=== PATIENT | female | born 1985 | race Caucasian/White ===

== ENCOUNTER 2022-07-25 09:42 | Emergency (ER) | payer OTHER, SELFPAY ==
[2022-07-25 09:46] VITALS: BP 115/75; PULSE 89; RESP 18; TEMP 36.2; O2SAT 95; BMI 36.5
[2022-07-25 09:58] VITALS: BP 162/99; PULSE 96; RESP 16; O2SAT 97
--- NOTE | 2022-07-25 10:20 | ED.GENADULT ---
HPI - General Adult General Time Seen by Provider: 10:20 Date Seen: 07/25/22 Chief complaint: Ear/Nose/Throat Problem Stated complaint: L ear infection Time Seen by Provider: 07/25/22 10:20 Source: patient and RN notes reviewed Mode of arrival: ambulatory Limitations: no limitations History of Present Illness HPI narrative: Patient is a very pleasant 36-year-old female with history of tobacco use who comes to the emergency room for evaluation regarding left ear pain. Patient is noted to have had the onset of some left ear pressure with crackling in her ear last night. This has happened to her in the past and she has been told to use Sudafed antihistamines and nasal sprays in this often works. She also tried some compresses last night alternating between hot and cold. Unfortunately she had increasing pain in crackling in her left ear overnight. She states the pain is radiating above and below her ear. She denies any drainage at this time. She noticed some maybe mild facial congestion on the left but otherwise has not had fever sore throat and she is normally healthy. She notes that she has tried ibuprofen and Tylenol and she is continuing with the same pain. No vomiting. Review of Systems Status of ROS: Reports: 10 or more systems reviewed and unremarkable except as noted in History and below Const: Denies: fever or chills Eyes: Denies: change in vision ENMT: Denies: throat pain, neck pain or throat swelling Cardio: Denies: chest pain or shortness of breath with exertion Resp: Denies: shortness of breath or cough GI: Denies: abdominal pain Musculo: Denies: neck pain Neuro: Reports: headache Allergy/Immuno: Denies: throat swelling PFSH PFS Social History Smoking Status: Current every day smoker Do you use any of these nicotine containing products: None Second hand tobacco smoke exposure: Yes How often do you have a drink containing alcohol: monthly or less AUDIT-C Alcohol total score: 1 Non-prescribed substance use: denies use Exam Narrative: Exam Narrative: Patient is alert and oriented very pleasant. Nontoxic in appearance. EOM is full. Right TM within normal limits. Left TM is with erythema bulging of the TM and loss of light reflex. There is no pain with external manipulation of the ear in the ear canal itself looks to be within normal limits. Oral cavity moist mucous membranes. Neck is supple without lymphadenopathy. Heart with regular rate and rhythm lungs are clear. Const: Vital Signs, click to edit/add: Vital Signs - 24 hr 07/25/22 09:46 07/25/22 09:58 07/25/22 10:30 Temperature 97.2 F L Pulse Rate [Pulse Oximeter] 89 96 98 Respiratory Rate 18 16 16 Blood Pressure [Ri t Upper Arm] 115/75 162/99 H 151/65 H Pulse Oximetry 95 97 97 Oxygen Delivery Me thod Room Air Room Air Room Air Documenting provider has reviewed patient's vital signs: yes Course Vital Signs Vital signs: Initial Vital Signs Temperature 97.2 F L 07/25/22 09:46 Temperature Source Temporal Artery Scan 07/25/22 09:46 Pulse Rate 89 07/25/22 09:46 Respiratory Rate 18 07/25/22 09:46 Blood Pressure 115/75 07/25/22 09:46 Blood Pressure Mean 88 07/25/22 09:46 Pulse Oximetry 95 07/25/22 09:46 Oxygen Delivery Method 07/25/22 09:46 Vital Signs Temperature 97.2 F L 07/25/22 09:46 Pulse Rate 89 07/25/22 09:46 Respiratory Rate 18 07/25/22 09:46 Blood Pressure 115/75 07/25/22 09:46 Pulse Oximetry 95 07/25/22 09:46 Oxygen Delivery Method 07/25/22 09:46 Temperature 97.2 F L 07/25/22 09:46 Pulse Rate 98 07/25/22 10:30 Respiratory Rate 16 07/25/22 10:30 Blood Pressure 151/65 H 07/25/22 10:30 Pulse Oximetry 97 07/25/22 10:30 Oxygen Delivery Method 07/25/22 10:30 Medical Decision Making MDM Narrative Medical decision making narrative: 1. Left otitis media-patient will placed on Augmentin 875 p.o. b.i.d. times 14 days. Recommend ibuprofen and Tylenol as needed. Patient does ask if she is able to use tramadol which she has at home from previous prescription and this will be fine to add this is needed. 2. Disposition-return as needed. Patient has tested negative for RSV influenza and COVID today. Medical Records Medical records reviewed: Yes I reviewed the patient's medical records Lab Data Labs: Lab Results 07/25/22 Range/Units 10:10 SARS-CoV-2 (PCR) Negative SARS-CoV-2 (Negative) Influenza Type A (PCR) Negative PCR FLU A (Negative) Influenza Type B (PCR) Negative PCR FLU B (Negative) RSV (PCR) Negative PCR RSV (Negative) Discharge Plan Discharge Clinical Impression: Otitis media Patient Disposition: Home, Self-Care Condition: Unchanged Additional Instructions: Start Augmentin today. Will be in instant meds for you Alternate ibuprofen and Tylenol as needed every 4 hours. Note for no work today Seek medical attention for worsening symptoms Follow Up/Referrals: Jigar Hector MD [Primary Care Provider] - Stand Alone Forms: Essential Medical Info Instructions
[2022-07-25 10:30] VITALS: BP 151/65; PULSE 98; RESP 16; O2SAT 97
[2022-07-25 10:53] LABS: PCR FLU A Negative PCR FLU A (Negative); PCR FLU B Negative PCR FLU B (Negative); PCR RSV Negative PCR RSV (Negative)
--- NOTE | 2022-07-25 10:53 | ED.NURSE ---
Patient left ambualtory. instymeds script provided. work note provided. will call if test results are positive. all questions answered. left ambulatory
[2022-07-25 11:02] LABS: SARS PCR* Negative SARS-CoV-2 (Negative)
== END 2022-07-25 10:55 | disposition home or self-care (01) ==
PROVIDERS: Emergency Provider Family Medicine; PCP Family Medicine
DX: H66.92 Otitis media, unspecified, left ear (principal)
CPT/HCPCS: 87502; 87631; 87634; 87635; 99283

== ENCOUNTER 2024-07-27 06:08 | Emergency (ER) | payer OTHER, SELFPAY ==
--- OUTSIDE RECORDS SUMMARY | 2024-07-27 06:11 | XMS_ITS | Clinical Summary ---
Author Organization [facility] Address [address] [place] [address] Care Team Providers Care Purchasing Analyst Name Role Phone Darius Melgar MD Primary Care Provider [phone] Source Comments You are receiving this document as you are listed as the primary care provider,follow-up provider, or the patient has been referred to you for consultation.This is in compliance with the Medicare andMedicaid EHR Incentive Program,which states Providers who transition their patient to another setting of careor provider of care or refers their patient to another provider of care shouldprovide summary care record for each transition of care or referral. [facility] Allergies Active Allergy Reactions Criticality Noted Date Comments Codeine Other, see comments 02/04/2012 Hallucinations; paranoia Hydrocodone-Acetamino phen Other, see comments 02/04/2012 blacked out for 8 hours Medications * This document contains information received from the source organization and may not represent a complete record from that organization. nystatin-triamc inolone (AKA MYCOLOG-II) 465876-1.1 UNIT/GM-% ointmentIndicat ions:Tinea Apply topically 2 times daily. until rash resolved. No more than 4 weeks 30 g 0 3 Active FIBER DIET OR Take by mouth. 5 Active cefuroxime (CEFTIN) 500 MG tabletIndicatio ns:Acute cystitis with hematuria Take 1 tablet by mouth 2 times daily. till all taken 10 tablet 0 5 Active Additional Information Patient not taking.Reported on 12/05/2021 Probiotic Product (ACIDOPHILUS PROBIOTIC) capsule Twice daily for 15 days 30 Capsule 2 Active Active Problems Problem Noted Date Diagnosed Date Atypical squamous cells of u ndetermined significance on cytologic smear of cervix (ASC-US) 05/13/2017 Overview (09/10/2019): [facility] Review: History: 04/2017: LSIL HPV+other 05/2017: Kite neg 04/2018: ASCUS HPV+other 04/2018: Kite neg 05/2019: ASCUS HPV+ other 05/2019: COLP & ECC neg Plan per Dr. Darius Cheatham: Pap and HPV testing in 2 years (05/2021) Immunizations Immunization Administration Dates Next Due 4vHPV (Gardasil) 08/07/2010,07/10/2010 TDAP (BOOSTRIX) 12/04/2013 Td 01/13/1996 Tdap 12/05/2021 Family History Medical History Relation Name Comments Cancer Father Pancreatic, Hod gkins Cancer, Lung Mother Hypertension Maternal Grandmother Relation Name Status Comments Father Mother Alive Maternal Grandmother Social History Tobacco Use Types Packs/Day Years Used Date Smoking Tobacco: Every Day Cigarettes Smokeless Tobacco: Never Comments:Smoking History Pac ks/day: Alcohol Use Standard Drinks/Week Comments Yes 1 (1 standard drink = 0.6 oz pur e alcohol) beer once a week Comments No Sex and Gender Information Value Date Recorded Sex Assigned at Not on file Legal Sex Female 2:53 PM CDT Gender Identity Not on file Sexual Orientation Not on file 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 Not on file Not on file Not on file Last Filed Vital Signs Vital Sign Reading Time Taken Comments Blood Pressure 150/95 12/05/2021 1:28 PM CDT Pulse 76 12/05/2021 1:28 PM CDT Temperature 36.7 C (98.1 F) 12/05/2021 1:28 PM CDT Respiratory Rate 18 12/05/2021 1:28 PM CDT Oxygen Saturation 100% 12/05/2021 1:28 PM CDT Inhaled Oxygen Concentration - - Weight 110.2 kg (243 lb) 05/27/2019 12:53 PM CHARTER COACH DRIVER Height 170.2 cm (5' 7) 05/03/2019 2:24 PM CHARTER COACH DRIVER Body Mass Index 38.06 05/03/2019 2:24 PM CHARTER COACH DRIVER Plan of Treatment Health Maintenance Due Date Last Done Comments Hep C Screening (Preventive Services) 1985 Mammogram 1985 HIV Screening (Preventive Services) 1999 Adult Preventive Visit 12/09/2001 HepB (1) 12/09/2002 Pneumococcal (1 of 2 - PCV) 12/09/2002 HPV Vaccine (3 - 3-dose series) 01/07/2011 08/07/2010, 07/10/2010 Cervical Cancer Screening 05/27/20212018, 05/27/2019 (Completed), 05/03/2019, Additional history exists COVID-19 Vaccine ( - season) 2024 Influenza (#1) 2024 DTaP/Tdap/Td (5 - Tdap) 12/06/2031 12/06/19, 12/04/2013, 11/02/2013, Additional history exists Zoster/Shingles (1 of 2) 12/09/2033 HepA Aged Out No longer eligi ble based on patient's age to complete this topic Hib Aged Out No longer eligi ble based on patient's age to complete this topic IPV (Polio) Aged Out No longer eligi ble based on patient's age to complete this topic MCV4 Aged Out No longer eligi ble based on patient's age to complete this topic Meningococcal B Aged Out No longer el igible based on patient's age to complete this topic Procedures Procedure Name Priority Date/Time Associated Diagnosis Comments PAP TEST Routine 05/03/2019 2:43 PM CHARTER COACH DRIVER Screening for malignant neoplasm of cervix from Last 3 Months or Most Recently Relevant to Health Maintenance Results * (ABNORMAL) PAP Test (05/03/2019 2:43 PM CHARTER COACH DRIVER) Case Report Pap Case: [id number] Authorizing Provider: Darius Cheatham MD Collected: 05/03/2019 02:43 PM Ordering Location: [place] [address] Received: 05/03/2019 04:35 PM Obstetrics/Material Specialist ecology First Screen: Nila Adan, CT (ASCP) Pathologist: Gerson Arguello MD Specimen: Pap Test, Diagnostic, Cervix/Endocerv ix 05/10/2019 1:38 PM CHARTER COACH DRIVER [facility] Pap Specimen Adequacy Satisfactory for evaluation, endocervical/tr ansformation zone component present. 05/10/2019 1:38 PM CHARTER COACH DRIVER [facility] Pap Interpretation Atypical squamous cells of undetermined significance (ASC-US).(A) 05/10/2019 1:38 PM CHARTER COACH DRIVER [facility] at 1338 CHARTER COACH DRIVER Gross Description The specimen is received in SurePath fixative and properly labeled. 1 Pap-stained SurePath slide is prepared. 05/10/2019 1:38 PM CHARTER COACH DRIVER [facility] Pap Disclaimer The Pap test is a screening test designed to aid in the detection of cervical cancer and its precursor lesions. It is not a diagnostic procedure and should not be used as the sole means of detecting cervical cancer. Both false-positive and false-negative reports may occur. 05/10/2019 1:38 PM CHARTER COACH DRIVER [facility] Embedded Images 9 1:38 PM CHARTER COACH DRIVER [facility] Other Specimen Type ENTIRE ENDOCERVIX / Unknown 05/03/2019 2:43 PM CHARTER COACH DRIVER 05/03/2019 4:35 PM CHARTER COACH DRIVER Comment:LMP: Patient's last menstrual period was 04/19/2019 (exact date). Darius Cheatham MD LAB PATHOLOGY Final Result [facility] [address] [place] [address], [facility] from Last 3 Months or Most Recently Relevant to Health Maintenance Insurance [facility] Care Teams Purchasing Analyst Relationship Specialty [place] [address] [place] [address] PCP - General Family Practice 04/23/16
--- OUTSIDE RECORDS SUMMARY | 2024-07-27 06:11 | XMS_ITS | Clinical Summary ---
Author Organization [facility] Address [address] [place] [id number] Care Team Providers Care Seating Captain Name Role Phone No Ref-Primary, Physician Primary Care Provider Allergies Active Allergy Reactions Criticality Noted Date Comments Codeine Sulfate Other (See Comments) 02/04/2012 Hallucinations; paranoia Hydrocodone-Acetamin ophen Other (See Comments) 02/04/2012 blacked out for 8 hours Medications IBUPROFEN PO Take 200 mg by mouth every 6 hours as needed. Active oxyCODONE-acetamino phen (PERCOCET) 5-325 MG per tabletIndications:H x of anterior cruciate ligament tear reconstruction Take 1-2 tablets by mouth every 4 hours as needed for pain. 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 MECHANIC HELPER Gender Identity Not on file Sexual Orientation Not on file Last Filed Vital Signs Vital Sign Reading Time Taken Comments Blood Pressure 163/115 07/27/2021 8:59 AM FORMING MACHINE UPKEEP MECHANIC HELPER Pulse 95 07/27/2021 8:59 AM FORMING MACHINE UPKEEP MECHANIC HELPER Temperature 36.8 C (98.3 F) 07/27/2021 8:59 AM FORMING MACHINE UPKEEP MECHANIC HELPER Respiratory Rate 18 07/27/2021 8:59 AM FORMING MACHINE UPKEEP MECHANIC HELPER Oxygen Saturation 99% 07/27/2021 8:59 AM FORMING MACHINE UPKEEP MECHANIC HELPER Inhaled Oxygen Concentration - - Weight 104.3 kg (230 lb) 07/27/2021 8:59 AM FORMING MACHINE UPKEEP MECHANIC HELPER Height 172.7 cm (5' 8) 07/27/2021 8:59 AM FORMING MACHINE UPKEEP MECHANIC HELPER Body Mass Index 34.97 07/27/2021 8:59 AM FORMING MACHINE UPKEEP MECHANIC HELPER Plan of Treatment Health Maintenance Due Date Last Done Comments ADVANCE CARE PLANNING 1983 ANNUAL REVIEW OF HM ORDERS 1983 GLUCOSE 1983 MAMMO SCREENING 1983 YEARLY PREVENTIVE VISIT 12/09/1986 HIV SCREENING 12/09/1998 HEPATITIS C SCREENING 12/09/2001 HEPATITIS B IMMUNIZATION (1 of 3 - 19+ 3-dose series) 12/09/2002 Pneumococcal Vaccine: Pediatrics (0 to 5 Years) and At-Risk Patients (6 to 49 Years) (1 of 2 - PCV) 12/09/2002 PAP 12/09/2004 HPV IMMUNIZATION (3 - 3-dose series) 01/07/2011 08/07/2010, 07/10/2010 DTAP/TDAP/TD IMMUNIZATION (3 - Td or Tdap) 12/05/2023 12/04/2013, 01/13/1996 LIPID 2023 COVID-19 Vaccine (1 - 2023-2 5 season) 2024 INFLUENZA VACCINE (#1) 2024 PHQ-2 (once per calendar year) 2024 ZOSTER IMMUNIZATION (1 of 2) 12/09/2033 MENINGITIS IMMUNIZATION Aged Out No l onger eligible based on patient's age to complete this topic Medical Devices Implanted Type Area Fusing Machine Feeder Device Identifier Shelf Expiration Date Model / Serial / Lot Imp Scr Bio Arthrex Can [id number] Sheath [id number] Implanted:Qty: 1 on 02/10/2012 by Gildardo Abdi MD at [facility] Left: Knee ARTHREX AR-[id number] / / [id number] Imp Scr Bio Arthrex Can [id number] Sheath [id number] Implanted:Qty: 1 on 02/10/2012 by Gildardo Abdi MD at [facility] Left: Knee ARTHREX 03/01/2013 [id number] / / [id number] Graft Tendon Quad Implanted:Qty: 1 on 02/10/2012 by Gildardo Abdi MD at [facility] Left: Knee MUSCULOSKELETAL JOHNSON 03/31/2016 [id number] / / [id number] [place] [id number] [place] [address] [employer] Advance Directives For more information, please contact: [phone] * Full Code (Latest Code Status on File) Date Activated Date Inactivated Comments 02/10/2012 8:44 AM 07/27/2021 8:56 AM Care Teams Seating Captain Relationship Specialty Start Date End Date No Ref-Primary, Physician PCP - General 07/27/21
--- OUTSIDE RECORDS SUMMARY | 2024-07-27 06:11 | XMS_ITS | Clinical Summary ---
Author Organization [email or web address] [facility] Address [address] [place] [address] Care Team Providers Care Director Of Intelligence Name Role Phone Kenisha Mullen Primary Care Provider [phone] Allergies Active Allergy Reactions Criticality Noted Date Comments Codeine Other - Describe In Comment Field 02/04/2012 Hallucinations; paranoia Hydrocodone-Acetaminoph en Other - Describe In Comment Field 02/04/2012 blacked out for 8 hours Sumatriptan Shortness Of Breath,Chest Pain 05/21/2023 [place] Mushroom Hives 04/14/2023 Medications lisinopril-hydroch lorothiazide (10-12.5 mg) tablet (PRINZIDE; ZESTORETIC)Indicat ions:HTN (hypertension) Take 1 Tablet by mouth once daily. 90 Tablet 3 05/10/20 24 Active atorvastatin (LIPITOR) 10 mg tabletIndications: Mixed hyperlipidemia Take 1 Tablet (10 mg) by mouth at bedtime. 90 Tablet 3 05/11/20 24 Active nystatin powder (MYCOSTATIN) powderIndications: Candidal intertrigo Apply 1 Strip topically to affected area(s) three times daily. Apply to skin folds in groin. 60 g 2 06/07/19 25 Active ubrogepant (Ubrelvy) 50 mg tab tabletIndications: Migraine without aura and without status migrainosus, not intractable Take 1 Tablet (50 mg) by mouth 2 times daily if needed for Migraine. Give at minimum 2hrs apart. Max Dose: 200mg per 24hrs. 10 Tablet 8 07/22/19 25 Active ubrogepant (Ubrelvy) 50 mg tab tabletIndications: Migraine without aura and without status migrainosus, not intractable Take 1 Tablet (50 mg) by mouth 2 times daily if needed for Migraine. Give at minimum 2hrs apart. Max Dose: 200mg per 24hrs. 10 Tablet 11 05/10/20 24 025 Discontin ued(*Avai lability/ Formulary change/Co st of medicatio n) Active Problems Problem Noted Date Diagnosed Date Nexplanon in place 12/31/2023 Overview (12/31/2023): Placed in left arm on 12/30/23. Due for removal in 3 years- 12/29/26 Kenisha Mullen PA-C, Family Medicine.....................12/31/2023 7:34 AM ASCUS with positive high risk HPV cervical 05/29 Overview (05/20/2024): 04/2017 LSIL/HPV+, HPV 16/18 negative 05/2017 [place]: Biopsy Benign, ECC Negative 04/2018 ASCUS/HPV+, HPV 16/18 negative 04/2018 [place]: Biopsy and ECC Negative 05/2019 ASCUS/HPV+, HPV 16/18 negative 05/2019 [place]: ECC Insufficient 05/2023 ASCUS/HPV+, HPV 16/18 negative 05/2024 NIL/HPV+, HPV 16/18 negative. Plan: Colposcopy. Obesity (BMI 30-39.9) 04/18/2023 Elevated blood pressure read ing without diagnosis of hypertension 04/16/2023 Migraine without aura and wi thout status migrainosus, not intractable 04/16/2023 Vitamin D deficiency 04/16/2023 Prediabetes 04/16/2023 Mixed hyperlipidemia 04/16/2023 Encounters Date Type Department Care Team Description 07/20/2024 Refill [facility] [address] [place] [address] Kenisha Mullen PA Refill Request (Ubrelvy) 07/13/2024 Transcribe Orders [facility] - [address] [place] [address] Collins Silva MD 07/07/2024 9:30 AM GRAIN SCOOPER Office Visit [facility] [address] [place] [address] Collins Silva MD Wrist 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 - right carpal tunnel syndrome) 07/07/2024 Travel 06/24/2024 Telephone [facility] [address] [place] [address] Kenisha Mullen PA Results (EMG) 06/21/2024 11:02 AM GRAIN SCOOPER - 06/21/2024 11:59 PM GRAIN SCOOPER Hospital Encounter [facility]W EMG/EEG/EP [address] [facility] [address] [place] [address] Kenisha Mullen PA Beck, Elizabeth Haule, MD Prelesnik, Jane D Paresthesia of right upper extremity 06/21/2024 Travel 06/07/2024 2:30 PM GRAIN SCOOPER Ancillary Procedure [address] [address] 06/07/2024 2:00 PM GRAIN SCOOPER Ancillary Procedure [address] [address] 06/07/2024 9:10 AM GRAIN SCOOPER Procedure Only [address] [address] Tanya Littlejohn, Procedure (Has had colposcopy in the past) 06/07/2024 Travel 05/31/2024 Telephone [facility] [address] [place] [address] Tech, Mammo Results 05/27/2024 8:40 AM GRAIN SCOOPER Ancillary Procedure [facility] [address] [place] [address] 05/27/2024 Travel 05/20/2024 Telephone [facility] [address] [place] [address] Kenisha Mullen PA Pap Plan 05/17/2024 1:12 PM GRAIN SCOOPER - 05/17/2024 11:59 PM GRAIN SCOOPER Hospital Encounter [facility] [address] [place] [address] Kenisha Mullen PA Pogwizd, Rebekah, OT Paresthesia of right upper extremity 05/17/2024 Travel 05/10/2024 10:10 AM GRAIN SCOOPER Office Visit [facility] [address] [place] [address] Kenisha Mullen PA Physical (Annual exam with pap-also discuss possible carpal tunnel) 05/10/2024 Travel 05/05/2024 Travel from Last 3 Months Immunizations Name Administration Dates Next Due Human Papilloma Virus Vaccine 08/07/2010, 011 Td (Age >=7 Years) 01/13/1996 Tdap 12/05/2021,12/04/2013,11/02/2013 Family History Medical History Relation Name Comments Cancer-pancreatic Father Hodgkin's lymphoma Father Cancer-breast Maternal Aunt Lung cancer Mother Relation Name Status Comments Father Maternal Aunt Mother Social History Tobacco Use Types Packs/Day Years Used Date Smoking Tobacco: Every Day Cigarettes 0.5 12.2 Started: 06/02/2012; Last attempted to quit: 03/04/2008 Smokeless Tobacco: Never Tobacco Cessation:Ready to Q uit: Not Asked; Counseling Given: Not Answered Alcohol Use Standard Drinks/Week Comments Yes 0 (1 standard drink = 0.6 oz pur e alcohol) PHQ-2 Answer Date Recorded PHQ-2 TOTAL SCORE 0 05/10/2024 Social Connections Answer Date Recorded Do you often feel lonely or isolated from those around you? 0 05/10/2024 Financial Resource Strain Answer Date R ecorded Difficulty of Paying Living Expenses 3 05/10/2024 Difficulty of Paying Living Expenses Not on file 05/10/2024 Food Insecurity Answer Date Recorded Do you worry your food will run out before you are able to buy more? 1 05/10/2024 Transportation Needs Answer Date Record ed Does lack of transportation keep you from medica l appointments? 1 05/10/2024 Does lack of transportation keep you from work, meetings or getting things that you need? 1 05/10/2024 Housing Stability Answer Date Recorded What is your housing situation today? 1 05/10/2024 Utilities Answer Date Recorded Do you have trouble paying f or utilities (for example, heat, electricity, water, phone)? 1 05/10/2024 Comments No Sex and Gender Information Value Date Recorded Sex Assigned at Not on file Legal Sex Female 5:59 AM GRAIN SCOOPER Gender Identity Not on file Sexual Orientation Not on file Obstetrics History Para Term AB IAB SAB Ectopic Multiple Livin g Live Births 1 1 Date Outcome GA Total Labor Labor/2nd/3rd Weight Sex Type Anes PTL Donna A1 A5 Name Clin AB Last Filed Vital Signs Vital Sign Reading Time Taken Comments Blood Pressure 133/84 06/07/2024 9:09 AM GRAIN SCOOPER Pulse 74 06/07/2024 9:09 AM GRAIN SCOOPER Temperature 36.8 C (98.2 F) 07/11/2018 5:56 PM GRAIN SCOOPER Respiratory Rate 18 07/11/2018 5:56 PM GRAIN SCOOPER Oxygen Saturation 96% 05/10/2024 10:02 AM GRAIN SCOOPER Inhaled Oxygen Concentration - - Weight 108.4 kg (239 lb) 05/10/2024 10:02 AM GRAIN SCOOPER Height 170.5 cm (5' 7.13) 05/10/2024 10:[address] Body Mass Index 37.29 05/10/2024 10:02 AM GRAIN SCOOPER Plan of Treatment Upcoming Encounters Date Type Department Care Team (Late st Contact Info) Description 09/16/2024 11:30 AM CDT Phone Office Visit [facility] [address] [facility] [address] [place] [address] Lety Blanco PA [address] [facility] [address] [place] [address] Scheduled Procedures Name Priority Associated Diagnoses Date/Ti me SURGICAL PROCEDURE (TYPE PRO CEDURE DESCRIPTION BELOW) Elective Right carpal tunnel syndrome Health Maintenance Due Date Last Done Comments Hepatitis C screening for ag e 18-79 12/09/2001 Pneumococcal series for age 6-49 (1 of 2 - PCV) 12/09/2002 COVID-19 vaccine series ( season) 2024 Influenza for age 9-49 02/01/2024 BMI (ht and wt on same day) for age 18+ 05/10/2025 05/10/2024, 04/14/2023 Depression screening for age 12+ 05/27/2025 05/27/2024, 05/10/2024, 04/14/2023 Pap test for age 21-65 06/07/2025 (Verified in Care Everywhere or Patient Record), 05/10/2024, 05/10/2024, Additional history exists Tetanus booster 12/06/2031 12/05/2021, 070 09/2013, 11/02/2013, Additional history exists HIV for age 15-65 Completed 07/02/2010 Tdap Completed 12/05/2021, 0 09/2013, 11/02/2013 Procedures Procedure Name Priority Date/Time Associated Diagnosis Comments EMG Routine 06/21/2024 Paresthesia of right upper extremity US BREAST UNILATERAL RIGHT LIMITED MAMTA 06/07/2024 2:18 PM GRAIN SCOOPER Abnormal mammogram XR MAMMO CASIE UNI ADDL VIEWS RIGHT MAMTA 06/07/2024 2:07 PM GRAIN SCOOPER Abnormal mammogram PATH TISSUE EXAM Routine 06/07/2024 9:37 AM GRAIN SCOOPER Cervical high risk HPV (human papillomavirus) test positive XR MAMMO CASIE BILAT SCREEN Routine 05/27/2024 8:54 AM GRAIN SCOOPER Visit for screening mammogram LIPID PANEL W REFLEX MEASURED LDL Routine 05/10/2024 10:39 AM GRAIN SCOOPER Screening cholesterol level COMP METABOLIC PANEL Routine 05/10/2024 10:39 AM GRAIN SCOOPER Diabetes mellitus screening HEMOGLOBIN A1C Routine 05/10/2024 10:39 AM GRAIN SCOOPER Diabetes mellitus screening OFFICE EQUIPMENT MECHANIC THIN PREP PAP SCREEN IMAGED Routine 05/10/2024 10:25 AM GRAIN SCOOPER Screening for malignant neoplasm of cervix HPV HIGH RISK Routine 05/10/2024 10:25 AM GRAIN SCOOPER Screening for malignant neoplasm of cervix ANTI HIV 1/2 Routine 07/02/2010 9:56 AM GRAIN SCOOPER Positive test from Last 3 Months or Most Recently Relevant to Health Maintenance Results * EMG (06/21/2024) us Kenisha CASEY NEUROLOGY ORD Final Resu lt * US BREAST UNILATERAL RIGHT LIMITED (06/07/2024 2:18 PM GRAIN SCOOPER) Anatomical Region Laterality Modality BREASTS, Breast Right Right Ultrasound Narrative 06/07/2024 4:05 PM GRAIN SCOOPER As a result of the Cures Act, medical imaging exams and procedure reports are released immediately into your electronic medical record. You may view this report before your referring provider. If you have questions, please contact your health care provider. RIGHT BREAST ULTRASOUND 06/07/2024 PLEASE SEE [id number] FOR RIGHT DIGITAL ADDITIONAL VIEWS MAMMOGRAM OF SAME DAY. us Kenisha CASEY US Final Resu lt * XR MAMMO CASIE UNI ADDL VIEWS RIGHT (06/07/2024 2:07 PM GRAIN SCOOPER) Anatomical Region Laterality Modality BREASTS, Breast Right Mammograph y 06/07/2024 2:59 PM GRAIN SCOOPER Impressions 06/07/2024 3:35 PM GRAIN SCOOPER Benign intramammary lymph node RIGHT breast 4 o'clock 7 cm from the nipple measuring 8 mm. No suspicious findings. No evidence of malignancy. RECOMMENDATIONS: Routine screening mammography. BI-RADS Category 2: Benign Dictated by: Darius Harris MD @06/07/2024 2:59:43 PM /sp PATIENTS: You will also receive a letter with your examination results in an easy to read format. If you have questions about your results, please contact your referring provider. Narrative 06/07/2024 3:35 PM GRAIN SCOOPER As a result of the Cures Act, medical imaging exams and procedure reports are released immediately into your electronic medical record. You may view this report before your referring provider. If you have questions, please contact your health care provider. RIGHT BREAST MAMMOGRAM DIGITAL ADDITIONAL VIEWS WITH TOMOSYNTHESIS 06/07/2024 RIGHT BREAST ULTRASOUND 06/07/2024 CLINICAL HISTORY: RIGHT breast mass/asymmetry. COMPARISON: 05/27/2024. TECHNIQUE: Digital RIGHT mammogram in two projections. Tomosynthesis was used in this interpretation. Real-time ultrasound imaging of RIGHT breast with imaging documentation. BREAST COMPOSITION: There are scattered areas of fibroglandular density. FINDINGS: 3D spot compression CC/MLO RIGHT breast mammogram images submitted. Persistent nodular density is present within the lower inner quadrant. No architectural distortion or suspicious calcifications. Targeted RIGHT breast ultrasound performed at 4 o'clock, 7 cm from the nipple. Benign intramammary lymph node is present at mid depth measuring 8 x 4 x 5 mm. us Kenisha CASEY MAMMO Final Resu lt * PATH TISSUE EXAM (06/07/2024 9:37 AM GRAIN SCOOPER) Case Report Pathology Report Case: [id number] Authorizing Provider: Tanya Littlejohn DO Collected: 06/07/2024 0937 Ordering Location: [facility] Received: 06/07/2024 1223 Clinic Pathologist: Judson Kaminski MD Specimens: A) - Endocervix, ecc B) - Cervix, 3:00 06/09/2024 4:00 PM GRAIN SCOOPER [facility] Final Diagnosis A) ENDOCERVIX, CURETTAGE: 1. Fragments of benign endocervical tissue 2. Negative for glandular neoplasia, squamous intraepithelial lesion, and malignancy B) CERVIX, 3:00, BIOPSY: 1. Low grade squamous intraepithelial lesion (TAMI 1) a. Sampling: Ectocervix b. Transformation zone: Not visualized 2. Negative for high grade TAMI and invasive carcinoma 06/09/2024 4:00 PM GRAIN SCOOPER [facility] Comment The patient's prior Pap test ([id number], 05/10/2024) was diagnosed as negative for intraepithelial lesion or malignancy (NIL) but HR-HPV testing was positive for HR-HPV other (non-16/18) subtype(s). 06/09/2024 4:00 PM GRAIN SCOOPER [facility] Clinical Information NIL Pap, +HPV 06/09/2024 4:00 PM GRAIN SCOOPER [facility] Gross Description A) Received in formalin, labeled with the patient's name and ECC, is a 1.2 x 0.5 x 0.1 cm aggregate of pink-zamudio mucosa admixed with clotted blood and mucous. The specimen is entirely submitted in 1 cassette. B) Received in formalin, labeled with the patient's name and B, is a single zamudio mucosal fragment measuring 0.4 cm. The specimen is submitted in toto in one cassette. SJM 06/08/2024 06/09/2024 4:00 PM GRAIN SCOOPER [facility] Microscopic Description The final diagnosis is based on microscopic examination of appropriate sections of all specimens. 06/09/2024 4:00 PM GRAIN SCOOPER [facility] Additional Information Interpreted at [facility] - [address] [facility] [address], [place] [address] 06/09/2024 4:00 PM GRAIN SCOOPER [facility] Other SWAB OF ENDOCERVIX / Unknown Non-Blood / Unknown 06/07/2024 9:37 AM GRAIN SCOOPER 06/07/2024 12:23 PM GRAIN SCOOPER Specimen (specimen) SPECIMEN FROM UTERINE CERVIX / Unknown 06/07/2024 9:39 AM GRAIN SCOOPER 06/07/2024 12:23 PM GRAIN SCOOPER Tanya Littlejohn DO PATHOLOGY/CYTOLOGY Final R esult [facility] [address] [place] [address], [place] * XR MAMMO CASIE BILAT SCREEN (05/27/2024 8:54 AM GRAIN SCOOPER) Anatomical Region Laterality Modality BREASTS, Breast Left, Breast Right Bilateral Mammography 05/27/2024 3:16 PM GRAIN SCOOPER Impressions 05/27/2024 3:32 PM GRAIN SCOOPER RIGHT breast asymmetry/mass. RECOMMENDATIONS: Additional mammographic views of the RIGHT breast including 3D spot-compression CC/MLO. RIGHT breast ultrasound may also be required. A member of the health care team will contact the patient to schedule the required additional imaging appointment. BI-RADS Category 0: Incomplete: Need Additional Imaging Evaluation Dictated by: Darius Harris MD @05/27/2024 3:16:49 PM/[facility] PATIENTS: You will also receive a letter with your examination results in an easy to read format. If you have questions about your results, please contact your referring provider. Narrative 05/27/2024 3:32 PM GRAIN SCOOPER As a result of the Cures Act, medical imaging exams and procedure reports are released immediately into your electronic medical record. You may view this report before your referring provider. If you have questions, please contact your health care provider. BILATERAL BREAST MAMMOGRAM DIGITAL SCREENING WITH COMPUTER-AIDED DETECTION AND TOMOSYNTHESIS 05/27/2024 CLINICAL HISTORY: Routine screening exam. COMPARISON: None. TECHNIQUE: Digital mammogram in CC and MLO projections including computer-aided detection (CAD). Tomosynthesis was used in this interpretation. BREAST COMPOSITION: There are scattered areas of fibroglandular density. FINDINGS: RIGHT Breast: Focal asymmetric density lower inner quadrant 7 cm from the nipple. LEFT Breast: No suspicious findings. Kenisha CASEY MAMMO Final Resu lt * (ABNORMAL) HEMOGLOBIN A1C (05/10/2024 10:39 AM GRAIN SCOOPER) HEMOGLOBIN A1C 5.9(H) <5.7 % of total Hgb [facility] Comment: For someone without known diabetes, a hemoglobin A1c value between 5.7% and 6.4% is consistent with prediabetes and should be confirmed with a follow-up test. For someone with known diabetes, a value <7% indicates that their diabetes is well controlled. A1c targets should be individualized based on duration of diabetes, age, comorbid conditions, and other considerations. This assay result is consistent with an increased risk of diabetes. Currently, no consensus exists regarding use of hemoglobin A1c for diagnosis of diabetes for children. Blood BLOOD SPECIMEN / Unknown 05/10/2024 10:39 AM GRAIN SCOOPER 05/10/2024 10:39 AM GRAIN SCOOPER Kenisha CASEY CHEMISTRY Final Resu lt Performing Organization Address City/[facility]/ZIP Co de Phone Number [facility] [employer] [facility] [address] [place] [address], [facility] [address] [place] [address] * (ABNORMAL) LIPID PANEL W REFLEX MEASURED LDL (05/10/2024 10:39 AM GRAIN SCOOPER) CHOLESTEROL, TOTAL 219(H) <200 mg/dL [facility] HDL CHOLESTEROL 47(L) > OR = 50 mg/dL [facility] TRIGLYCERIDES 72 <150 mg/dL [facility] LDL-CHOLESTEROL 155(H) mg/dL (calc) [facility] Comment: Reference range: <100 Desirable range <100 mg/dL for primary prevention; <70 mg/dL for patients with CHD or diabetic patients with > or = 2 CHD risk factors. LDL-C is now calculated using the Luis-Telles calculation, which is a validated novel method providing better accuracy than the Friedewald equation in the estimation of LDL-C. Luis SS et al. SURAJ. 2013;310(19): 3886-0413 (http://education.ElasticDot/faq/HHT348) CHOL/HDLC RATIO 4.7 <5.0 (calc) [facility] NON HDL CHOLESTEROL 172(H) <130 mg/dL (calc) [facility] Comment: For patients with diabetes plus 1 major ASCVD risk factor, treating to a non-HDL-C goal of <100 mg/dL (LDL-C of <70 mg/dL) is considered a therapeutic option. Blood BLOOD SPECIMEN / Unknown 05/10/2024 10:39 AM GRAIN SCOOPER 05/10/2024 10:39 AM GRAIN SCOOPER Kenisha CASEY CHEMISTRY Final Resu lt [employer] [facility] [address] [facility] [place] [address], [facility] [address] [place] [address] * (ABNORMAL) COMP METABOLIC PANEL (05/10/2024 10:39 AM GRAIN SCOOPER) Pathologist [facility] GLUCOSE 105(H) 65 - 99 mg/dL [facility] Comment: Fasting reference interval For someone without known diabetes, a glucose value between 100 and 125 mg/dL is consistent with prediabetes and should be confirmed with a follow-up test. UREA NITROGEN (BUN) 11 7 - 25 mg/dL [facility] CREATININE 0.93 0.50 - 0.99 mg/dL [facility] EGFR 80 > OR = 60 mL/min/1. 73m2 [facility] BUN/CREATININE RATIO SEE NOTE: 6 - 22 (calc) [facility] Comment: Not Reported: BUN and Creatinine are within reference range. SODIUM 139 135 - 146 mmol/L [facility] POTASSIUM 4.3 3.5 - 5.3 mmol/L [facility] CHLORIDE 104 98 - 110 mmol/L [facility] CARBON DIOXIDE 25 20 - 32 mmol/L [facility] CALCIUM 9.6 8.6 - 10.2 mg/dL [facility] PROTEIN, TOTAL 7.2 6.1 - 8.1 g/dL [facility] ALBUMIN 4.8 3.6 - 5.1 g/dL [facility] GLOBULIN 2.4 1.9 - 3.7 g/dL (calc) [facility] ALBUMIN/GLOBULIN RATIO 2.0 1.0 - 2.5 (calc) [facility] BILIRUBIN, TOTAL 0.4 0.2 - 1.2 mg/dL [facility] ALKALINE PHOSPHATASE 47 31 - 125 U/L [facility] AST 20 10 - 30 U/L [facility] ALT 31(H) 6 - 29 U/L [facility] Blood BLOOD SPECIMEN / Unknown 05/10/2024 10:39 AM GRAIN SCOOPER 05/10/2024 10:39 AM GRAIN SCOOPER Kenisha CASEY CHEMISTRY Final Resu lt [employer] [facility] [address] [place] [address], [facility] [address] [place] [address] * OFFICE EQUIPMENT MECHANIC THIN PREP PAP SCREEN IMAGED (05/10/2024 10:25 AM GRAIN SCOOPER) Case Report Gynecologic Cytology Report Case: [id number] Authorizing Provider: Kenisha Mullen PA Collected: 05/10/2024 1025 Ordering Location: [facility] Received: 05/10/2024 1056 Clinic First Screen: Jacob Gonzalez Rescreen: Migdalia Robison Specimen: OFFICE EQUIPMENT MECHANIC ThinPrep Vial Screening, Cervical 05/20/2024 11:37 AM GRAIN SCOOPER [facility] INTERPRETATION/ RESULT NEGATIVE FOR INTRAEPITHELIAL LESION OR MALIGNANCY (NIL) (none) 05/20/2024 11:37 AM GRAIN SCOOPER [facility] NISM(S) Shift in magdy suggestive of bacterial vaginosis 05/20/2024 11:37 AM GRAIN SCOOPER [facility] SPECIMEN ADEQUACY Satisfactory for evaluation No endocervical component seen 05/20/2024 11:37 AM GRAIN SCOOPER [facility] HPV REQUEST HPV and PAP 05/20/2024 11:37 AM GRAIN SCOOPER [facility] Date of LMP unknown-had Nexplanon 05/20/2024 11:37 AM GRAIN SCOOPER [facility] Last Pap Date 05/19/23 05/20/2024 11:37 AM GRAIN SCOOPER [facility] Last Pap Result ASCUS 11:37 AM GRAIN SCOOPER [facility] Abnormal Pap or [place] Bx in last 5 years Yes 05/20/2024 11:37 AM GRAIN SCOOPER [facility] Menstrual Status Hormonally Suppressed 05/20/2024 11:37 AM GRAIN SCOOPER [facility] [place] Bx Done Today No 05/20/2024 11:37 AM GRAIN SCOOPER [facility] Additional Information None given 05/20/2024 11:37 AM GRAIN SCOOPER [facility] Comment: Cytology is screened at [facility] - [address], [place] [address] and [facility] - [address], [place] [address] and [facility] - [address] [place] [address] Interpreted at [facility] - [address], [place] [address] Automated Review Successful 05/20/2024 11:37 AM GRAIN SCOOPER [facility] Comment:Specimen processed s uccessfully by automated sheet tailer device, ThinPrep Imaging System, [employer] ANCILLARY TESTING OFFICE EQUIPMENT MECHANIC HPV Ordered, Please see separate report 05/20/2024 11:37 AM GRAIN SCOOPER [facility] Note The pap test is a screening technique, not a diagnostic procedure. It is used primarily to screen for squamous cancers and precursor lesions. Published studies have shown that it is subject to both false negative and false positive results. The pap test should not be used as the sole means to diagnose or exclude pre-malignant and malignant lesions. 05/20/2024 11:37 AM [facility] Other (Cervical) Non-Blood / Unknown 05/10/2024 10:25 AM GRAIN SCOOPER 05/10/2024 10:56 AM GRAIN SCOOPER us Kenisha CASEY PATHOLOGY/CYTOLOGY Final R esult [facility] [address] [place] [address], [place] * (ABNORMAL) HPV HIGH RISK (05/10/2024 10:25 AM GRAIN SCOOPER) TYPE 16 Negative Negative 05/13/2024 2:48 PM GRAIN SCOOPER [facility] TYPE 18 Negative Negative 05/13/2024 2:48 PM GRAIN SCOOPER [facility] OTHER HIGH RISK TYPES Positive(A) Negative 05/13/2024 2:48 PM GRAIN SCOOPER [facility] Other (Cervical) Non-Blood / Unknown 05/10/2024 10:25 AM GRAIN SCOOPER 05/11/2024 10:17 AM GRAIN SCOOPER Narrative [facility] - 05/13/2024 2:48 PM GRAIN SCOOPER Specimen is positive for the DNA of any one of, or combination of, the following high risk HPV types: 31, 33, 35, 39, 45, 51, 52, 56, 58, 59, 66, 68. HPV types 16 and 18 DNA were undetectable or below the pre-set threshold. Methodology: Pankaj Tariq 4800 HPV Test Kenisha CASEY MICROBIOLOGY Final Resu lt [facility] [address] [place] [address], * ANTI HIV 1/2 [69872.0] (07/02/2010 9:56 AM GRAIN SCOOPER) ANTI HIV 1/2 Non-reacti ve [facility] Blood specimen (specimen) BLOOD SPECIMEN / Unknown 07/02/2010 9:56 AM GRAIN SCOOPER 07/02/2010 9:54 AM GRAIN SCOOPER Krystle Gallardo MD SEND OUTS Final Res ult [facility] [place]NAL ZIP [address] [address] from Last 3 Months or Most Recently Relevant to Health Maintenance Insurance [facility] [place] [address] Care Teams Director Of Intelligence Relationship Specialty Start Date End Date Kenisha Mullen PA [address] [place] [address] PCP - General Physician Senior Process Engineer 04/16/23
--- OUTSIDE RECORDS SUMMARY | 2024-07-27 06:11 | XMS_ITS | Encounter Summary ---
Author Organization [facility] Address [address] [place] [address] Care Team Providers Care Wedding Coordinator Name Role Phone No Ref-Primary, Physician Primary Care Provider Encounter Details Date Type Department Care Team (Late st Contact Info) Description 07/27/2021 Documentation Only INTERFACED REPORT Unknown, Provider Social History Tobacco Use Types Packs/Day Years Used Date Smoking Tobacco: Every Day Cigarettes Smokeless Tobacco: Never Comments:06/05 ppd Alcohol Use Standard Drinks/Week Comments Yes 0 (1 standard drink = 0.6 oz pur e alcohol) very rare Comments No Sex and Gender Information Value Date Recorded Sex Assigned at Not on file Legal Sex Female 4:42 AM 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 No / Unsure 07/27/2021 8:56 AM KNOCK UP ASSEMBLER documented as of this encounter Plan of Treatment Not on file documented as of this encounter Visit Diagnoses Not on filedocumented in this encounter Care Teams Wedding Coordinator Relationship Specialty Start Date End Date No Ref-Primary, Physician PCP - General 07/27/21 documented as of this encounter
[2024-07-27 06:14] VITALS: BP 179/94; PULSE 89; RESP 16; TEMP 36.7; O2SAT 98; BMI 45.7
[2024-07-27 06:24] VITALS: TEMP 36.7
[2024-07-27] MEDS: ACETAMINOPHEN 500 MG TABLET 1000 MG PO (06:24)
[2024-07-27] MEDS: LIDOCAINE/EPINEP/TETRACAINE 3 ML GEL..ML. TOPICAL (06:26)
[2024-07-27] MEDS: LIDOCAINE 1 % PF 30 ML INJECTION (06:27)
--- NOTE | 2024-07-27 06:27 | ED.WOUNDLAC ---
HPI - Wound/Laceration General Date Seen: 07/27/24 Chief Complaint: Laceration/Wound Stated Complaint: Fall, R hand lacs Time Seen by Provider: 07/27/24 06:21 Source: patient Mode of arrival: ambulatory Limitations: no limitations History of Present Illness HPI narrative: Patient presents of a laceration to her right hand she is right-handed she was walking outside, slipped on some ice went to grab with her hand and hit some V I O decorations. With a laceration between her 3rd and 4th finger, and her interdigital webspace, and also a couple over her thenar eminence of her right hand. It was bleeding a fair bit at home so she wrapped it up tightly and came here to the emergency room. She denies a history of any bleeding dyscrasias. No loss conscious no other injury noted. Related Data Allergies Allergy/AdvReac Type Severity Reaction Status Date / Time Mushroom Extract Complex Allergy Unknown throat Uncoded 08/05/22 08:59 swelling Review of Systems Status of ROS: Reports: 6 or more systems reviewed and unremarkable except as noted in History and below PFSH PFS Medical History Concussion ?S06.0XAA - Concussion with loss of consciousness status unknown, initial encounter (ICD-10) Surgical History Status post arthroscopy of left knee ?Z98.890 - Other specified postprocedural states (ICD-10) Social History Smoking Status: Current every day smoker Do you use any of these nicotine containing products: None Second hand tobacco smoke exposure: No How often do you have a drink containing alcohol: monthly or less AUDIT-C Alcohol total score: 1 Non-prescribed substance use: denies use Exam Narrative: Exam Narrative: On examination she has a laceration between her 3rd and 4th finger, interdigital space, of approximately 1 in, that is slightly gaping, but she has full range of motion of her 3rd and 4th fingers, both PIP D IP flexion extension MCP flexion and extension are all normal. Cap refills normal sensations normal over all her fingers. Thumb but she is able to move her thumb from full range of motion. Const: Vital Signs, click to edit/add: Vital Signs - 24 hr 07/27/24 06:14 07/27/24 06:24 Temperature 98.0 F 98.0 F Pulse Rate [Pulse Oximeter] 89 Respiratory Rate 16 Blood Pressure [Ri ght Upper Arm] 179/94 H Pulse Oximetry 98 Oxygen Delivery Me thod Room Air Documenting provider has reviewed patient's vital signs: yes Course Course ED Course: After anesthesia with the 5 mL of 1% lidocaine without epinephrine, and some let on her thenar wounds, I was able to place using simple fashion 4 simple 4-0 Prolene sutures, this resulted in good hemostasis and brought the wound together there is no evidence of foreign body, and there is no evidence of any laceration of the tendon, distant found this acceptable. Dressing was placed with bacitracin, attention then to the thenar wounds, both were closed with the Dermabond after I cleaned them out with Hibiclens also. No evidence of foreign body, No complications, neurovascular intact post procedure, estimated blood loss less than 2 mL Vital Signs Vital signs: Initial Vital Signs Temperature 98.0 F 07/27/24 06:14 Temperature Source Temporal Artery Scan 07/27/24 06:14 Pulse Rate 89 07/27/24 06:14 Respiratory Rate 16 07/27/24 06:14 Blood Pressure 179/94 H 07/27/24 06:14 Blood Pressure Mean 122 H 07/27/24 06:14 Pulse Oximetry 98 07/27/24 06:14 Oxygen Delivery Method Room Air 07/27/24 06:14 Vital Signs Temperature 98.0 F 07/27/24 06:14 Pulse Rate 89 07/27/24 06:14 Respiratory Rate 16 07/27/24 06:14 Blood Pressure 179/94 H 07/27/24 06:14 Pulse Oximetry 98 07/27/24 06:14 Oxygen Delivery Method Room Air 07/27/24 06:14 Temperature 98.0 F 07/27/24 06:24 Pulse Rate 89 07/27/24 06:14 Respiratory Rate 16 07/27/24 06:14 Blood Pressure 179/94 H 07/27/24 06:14 Pulse Oximetry 98 07/27/24 06:14 Oxygen Delivery Method Room Air 07/27/24 06:14 Medications Administered Medications: Generic Name Dose Route Start Last Admin Trade Name Freq PRN Reason Stop Dose Admin Lidocaine HCl 30 ml 07/27/24 06:21 07/27/24 06:27 Lidocaine 1 % Pf 30 Ml INJECTION 30 ml ONCE PRN Administration Discontinued Medications Generic Name Dose Route Start Last Admin Trade Name Kirstin PRN Reason Stop Dose Admin Acetaminophen 1,000 mg 07/27/24 06:21 07/27/24 06:24 Acetaminophen 500 Mg Tablet PO 07/27/24 06:22 1,000 mg ONCE ONE Administration Lidocaine/Epinephrine/Tetracaine 3 ml 07/27/24 06:23 07/27/24 06:26 Lidocaine/Epinep/Tetracaine 3 Ml Gel..Ml. TOPICAL 07/27/24 06:24 3 ml ONCE ONE Administration Discharge Plan Discharge Clinical Impression: Laceration Patient Disposition: Home, Self-Care Condition: Stable Instructions: Laceration (ED), Skin Adhesive Care (ED) Additional Instructions: Home, rest, off work for 2 days and then follow-up with primary care for wound check take your antibiotics as directed, you probably given the fact your outplacement consultant be off work for the next 2 weeks. Watch for signs of infection such as redness swelling pain fevers or chills re-presented if these occur sutures should come out in 10 days, the glue will fall off by itself and probably 4-5 days. Do not put any bacitracin on the areas that were glued, but she may put bacitracin on the area that was sutured. Showering is okay, but swimming, hot tubs should be discouraged . Keflex 500 mg po bid for 7 days Activity Level: Light activity Discharge Diet: Regular Follow Up/Referrals: Jigar Hector MD [Staff Physician] - Stand Alone [facility]
--- OUTSIDE RECORDS SUMMARY | 2024-07-27 06:42 | XMS_ITS | Clinical Summary ---
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 Gender Identity Not on file Sexual Orientation Not on file Last Filed Vital Signs Vital Sign Reading Time Taken Comments Blood Pressure 163/115 07/27/2021 8:59 AM OUTREACH ASSISTANT Pulse 95 07/27/2021 8:59 AM OUTREACH ASSISTANT Temperature 36.8 C (98.3 F) 07/27/2021 8:59 AM OUTREACH ASSISTANT Respiratory Rate 18 07/27/2021 8:59 AM OUTREACH ASSISTANT Oxygen Saturation 99% 07/27/2021 8:59 AM OUTREACH ASSISTANT Inhaled Oxygen Concentration - - Weight 104.3 kg (230 lb) 07/27/2021 8:59 AM OUTREACH ASSISTANT Height 172.7 cm (5' 8) 07/27/2021 8:59 AM OUTREACH ASSISTANT Body Mass Index 34.97 07/27/2021 8:59 AM OUTREACH ASSISTANT Plan of Treatment Health Maintenance Due Date [...] this topic Medical Devices Implanted Type Area Platform Consultant Device Identifier Shelf Expiration Date Model / Serial / Lot Imp Scr Bio Arthrex Can [id number] Sheath [id number] Implanted:Qty: 1 on 02/10/2012 by Gildardo Abdi MD at [facility] Left: Knee ARTHREX AR-1380B / / [id number] Imp Scr Bio Arthrex Can [id number] Sheath Ar-[id number] Implanted:Qty: 1 on 02/10/2012 by Gildardo Abdi MD at [facility] Left: Knee ARTHREX 03/01/2013 AR-1380B / / [id number] [id number] Tendon Quad Implanted:Qty: 1 on 02/10/2012 by Gildardo Abdi MD at [facility] Left: Knee MUSCULOSKELETAL JOHNSON 03/31/2016 [id number] / / [id number] [place] [id number] [place] [id number] [employer] Advance Directives For more information, please contact: [phone] * Full Code (Latest Code Status on File) Date Activated Date Inactivated Comments 02/10/2012 8:44 AM 07/27/2021 8:56 AM Care Teams Payroll Accounting Specialist Relationship Specialty Start Date End Date No Ref-Primary, Physician PCP - General 07/27/21
--- OUTSIDE RECORDS SUMMARY | 2024-07-27 06:42 | XMS_ITS | Clinical Summary ---
Author Organization [facility] Address [address] [place] [address] Care Team Providers Care Car Hopper Name Role Phone Darius Melgar MD Primary Care Provider [phone] Source Comments You are receiving this document [...] for each transition of care or referral. [facility] Allergies Active Allergy Reactions Criticality Noted Date Comments Codeine Other, see comments 02/04/2012 Hallucinations; paranoia Hydrocodone-Acetamino phen Other, see comments 02/04/2012 blacked out for 8 hours Medications * This document contains information received from the source organization and may not represent a complete record from that organization. 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 Not on file Not [...] 110.2 kg (243 lb) 05/27/2019 12:53 PM EDGE ROLLER Height 170.2 cm (5' 7) 05/03/2019 2:24 PM EDGE ROLLER Body Mass Index 38.06 05/03/2019 2:24 PM EDGE ROLLER Plan of Treatment Health Maintenance Due Date [...] Comments PAP TEST Routine 05/03/2019 2:43 PM EDGE ROLLER Screening for malignant neoplasm of cervix from Last 3 Months or Most Recently Relevant to Health Maintenance Results * (ABNORMAL) PAP Test (05/03/2019 2:43 PM EDGE ROLLER) Case Report Pap Case: [id number] Authorizing Provider: Darius Cheatham MD Collected: 05/03/2019 02:43 PM Ordering Location: [place] [address] Received: 05/03/2019 04:35 PM Obstetrics/Assistant Golf Course Superintendent ecology First Screen: Nila Adan, CT (ASCP) Pathologist: Gerson Arguello MD Specimen: Pap Test, Diagnostic, Cervix/Endocerv ix 05/10/2019 1:38 PM EDGE ROLLER [facility] Pap Specimen Adequacy Satisfactory for evaluation, endocervical/tr ansformation zone component present. 05/10/2019 1:38 PM EDGE ROLLER [facility] Pap Interpretation Atypical squamous cells of undetermined significance (ASC-US).(A) 05/10/2019 1:38 PM EDGE ROLLER [facility] at [address] EDGE ROLLER Gross Description The specimen is received in SurePath fixative and properly labeled. 1 Pap-stained SurePath slide is prepared. 05/10/2019 1:38 PM EDGE ROLLER [facility] Pap Disclaimer The Pap test is a screening test designed to aid in the detection of cervical cancer and its precursor lesions. It is not a diagnostic procedure and should not be used as the sole means of detecting cervical cancer. Both false-positive and false-negative reports may occur. 05/10/2019 1:38 PM EDGE ROLLER [facility] Embedded Images 9 1:38 PM EDGE ROLLER [facility] Other Specimen Type ENTIRE ENDOCERVIX / Unknown 05/03/2019 2:43 PM EDGE ROLLER 05/03/2019 4:35 PM EDGE ROLLER Comment:LMP: Patient's last menstrual period was 04/19/2019 (exact date). Darius Cheatham MD LAB PATHOLOGY Final Result [facility] [address] [place] [address], [facility] from Last 3 Months or Most Recently Relevant to Health Maintenance Insurance [facility] [place] [address] Care Teams Car Hopper Relationship Specialty [place] [address] [place] [address] PCP - General Family Practice 04/23/16
--- OUTSIDE RECORDS SUMMARY | 2024-07-27 06:42 | XMS_ITS | Encounter Summary ---
Author Organization [facility] Address [address] [place] [address] Care Team Providers Care Plumbing Service Technician Name Role Phone No Ref-Primary, Physician Primary [...] on file Legal Sex Female 4:42 AM FACILITIES ADMINISTRATOR Gender Identity Not on file Sexual Orientation Not on file COVID-19 Exposure Response Date Recorded In the last month, have you been in contact with someone who was confirmed or suspected to have Coronavirus / COVID-19? No / Unsure 07/27/2021 8:56 AM FACILITIES ADMINISTRATOR documented as of this encounter Plan of Treatment Not on file documented as of this encounter Visit Diagnoses Not on filedocumented in this encounter Care Teams Plumbing Service Technician Relationship Specialty Start Date End Date No Ref-Primary, Physician PCP - General 07/27/21 documented as of this encounter
== END 2024-07-27 07:37 | disposition home or self-care (01) ==
PROVIDERS: Emergency Provider Family Medicine; PCP Physician Assistant
DX: S61.411A Laceration without foreign body of right hand, initial encounter (principal); W00.9XXA Unspecified fall due to ice and snow, initial encounter
CPT/HCPCS: 12001; 73120; 99283; A9270; J2003